=== PATIENT | male | born 1975 | race Caucasian/White ===

== ENCOUNTER → 2017-10-31 | Outpatient (CLI) | payer OTHER ==
--- NOTE | 2017-11-01 05:21 | PAP/PSG TECHNICIAN REPORT ---
[facility] Lead Housekeeper Polysomnogram Report Study name: None Report date: 11/01/2017 Study date: 10/31/2017 Referring Physician: Dr. Sinha Name: LENKA ARMSTRONG Interpreting Physician: Javier Reyna M.D. Date of : 1975 Lead Housekeeper: MARKUS Clayton. Sex: Male Age: 42 StudyType: PSG Weight: 132 lbs 14.5 INCHES Height: 42 years, Height 5' 3" Neck Circum: BMI: 23.38 Medications: ADVAIR DISKUS, ABILIFY 5 MG, WELLBUTRIN XL 150 MG, FLONASE, LOSARTAN POTASSIUM 100 MG, REGLAN 5 MG, TOPROL XL 25 MG, PRILOSEC 40 MG, PROAIR HFA 108 90 BASE, RANITIDINE HCL 300 MG Patient History PATIENT HAS HISTORY COPD, EXCESSIVE DAYTME SLEEPINESS AND SCHIZOPHRENIA. PATIENT USUALLY SLEEPS AROUND 12 HRS A DAY. HE IS HERE TODAY FOR AN EVALUATION FOR SUHAIL. ESS = 15 RM 7 Parameters Monitored NPSG: E1-M2, E2-M1, Fp1-M2, Fp2-M1, F3-M2, F4-M2, F4-M1, C3-M2, C4-M2, C4-M1, O1-M2, O2-M2, O2-M1, T3-M2, T4-M1, P3-M2, P4-M1, CHIN1, CHIN2, HR, EKG, Legs, PFLOW, SNOR, FLOW, CFLOW, Tidal Volume, THOR, ABDO, SpO2, PLTH, CPRESS, ETCO2 Wave, ETCO2, pH Sleep Architecture Sleep Stages Time at Lights Off 9:49:52 PM STAGES Time (min.) TST (%) Time at Lights On 4:17:52 AM Wake 153.5 -- Total Recording Time (TRT) 388.50 min. N1 22.0 9 Total Sleep Period (TSP) 257.5 min. N2 190.0 81 Total Sleep Time (TST) 234.5min. N3 16.5 7 Awake Time 154.0 min. REM 6.0 3 Wake after Sleep Onset 97.5 min. Sleep Efficiency (SE) 60 % Sleep Onset Latency ([place]) 56.0 min. Number of Stage 1 Shifts None Awakenings 17 Stage Changes 73 Number of REM periods 1 REM 6.0 3 REM Latency 147.5 min. NREM 228.5 97 Body Position Analysis Supine Right Left Side Prone Vertical Total Sleep Time (min.) 288.8 21.9 43.2 65.11 0.0 0.0 Total Sleep Time (%) 72% 9% 18% 28 0% N/A% Total Sleep Time REM (min.) 6.0 0.0 0.0 None 0.0 0.0 Total Sleep Time NREM (min.) 163.4 21.9 43.2 None 0.0 0.0 Intermittent Wake (min.) 119.5 2.7 31.4 None 0.0 0.0 Total Sleep Period (%) 72% None None None None None Arousals Myoclonus (PLM) * Events Count Index Events Count Index Spontaneous 30 8 Events Awake (PLMW) 150 58.6 Respiratory 26 6.7 Events Asleep w/ Arousal (PLMA) 4 1.0 PLM 4 1 Events Asleep w/o Arousal (PLMS) 88 22.5 Snoring 8 2 Total Asleep 92 23.5 Total 68 17 Total 242 37 Respiratory Analysis * CA OA MA CH H RERA Total Count 0 3 1 0 8 33 12 Index 0.0 0.8 0.3 0 2.0 8 11.5 Mean Duration 0.0 17.5 18.2 0.00 23.1 16.7 17.9 Longest Duration 0.0 22.7 18.2 0.00 18.2 22.0 38.0 Respiratory Event Summary Total Supine ~Supine Right Left Prone REM NREM Apneas Count 4 4 0 0 0 N/A 0 4 Index 1.0 1 0 0.0 0.0 N/A 0 1 Hypopneas (4% Desat) Count 8 8 0 0 0 N/A 0 8 Index 2.0 2.8 0 0.0 0.0 N/A 0.0 2.1 Apneas & All Hypopneas Count 12 12 0 0 0 N/A 0 12 Index 3.1 4 0 0 0 N/A 0.0 3.2 Respiratory Events (Hr Receptionist+All Hyp+RERA) Count 12 45 0 0 0 N/A 0 12 Index 11.5 16 0 0.0 0.0 N/A 0.0 11.8 Respiratory Related Arousal Count 26 45 0 0 0 N/A 0 26 Index 6.7 9 0 0 0 N/A 0 7 Snoring Analysis Supine Right Left Prone REM NREM Total Snore duration 9.7 min Snores count 296 59 96 N/A 0 451 451 Snore mean duration 1.3 Sec Snores index 105 162 133 N/A 0.0 118.4 115.4 TST with snoring (%) 4.1% SpO2 Analysis Total REM NREM Awake <50% 0.0 min. 0.0 min. 0.0 min. 0.0 min. 51 - 60% 0.0 min. 0.0 min. 0.0 min. 0.0 min. 61 - 70% 0.0 min. 0.0 min. 0.0 min. 0.0 min. 71 - 80% 0.4 min. 0.0 min. 0.0 min. 0.4 min. 81 - 90% 70.4 min. 0.8 min. 34.1 min. 35.6 min. 91 - 100% 310.6 min. 5.2 min. 194.4 min. 110.9 min. Average 92 91 92 92 Minimum SpO2 74 90 88 74 Desaturation Event Index 2.6 0.0 2.9 2.7 # Desat. Events below 89% 4 N/A 1 3 Time(%) with Saturation below 89% 2.4 0.0 0.1 2.3 Time(min.) with Saturation below 89% 9.2 0.0 0.3 8.8 Heart Rate Analysis End Tidal CO2 Analysis Min (bpm) Max (bpm) Average (bpm) TSP (mins) % of TSP Awake 41 157 71 Above 55 mmHg 0.0 0.0 NREM 47 82 61 50-55 mmHg 0.0 0.0 REM 66 85 79 45-50 mmHg 0.0 0.0 Overall 47 85 62 40-45 mmHg 0.2 0.1 35-40 mmHg 105.5 45.0 30-35 mmHg 118.1 50.4 Average ETCO2 0.1 Supplemental O2 Values Minimum O2 level: None Value Start Time End Time Lead Housekeeper Comments Mr. Armstrong slept in the right, left and supine positions. PVC's noted. Leg movements noted. No bruxism noted. Snoring was noted and scored as a 3 on a scale of 1 through 5. (0=no snoring, 5=snoring loud enough to be heard through a closed door or down the benites way) Mr. Armstrong awoke to use the restroom 0 times during the night. Mr. Armstrong stated I did not sleep as well as I do when I am in my own bed. The final report will be interpreted and signed by a sleep physician. The completed physician report will then be placed in the patient medical record. Therapy (cm H2O) 0 TIB (min.) 388.0 TST (min.) 234.5 Sleep Onset (min.) 56.0 REM Onset From Sleep (min.) 147.5 Sleep Efficiency % 60 Wakefulness (%) 40 Wakefulness (min.) 154.0 NREM 1 (%) 9 NREM 1 (min.) 22.0 NREM 2 (%) 81 NREM 2 (min.) 190.0 NREM 3 (%) 7 NREM 3 (min.) 16.5 REM (%) 3 REM (min.) 6.0 # Arousals 68 Arousal Index 17 # Snore 451 Snore Index 115.4 AHI 3.1 AHI Supine 4 AHI Non-Supine 0 NREM AHI 3.2 REM AHI 0.0 RDI 11.5 # Obstructive Apnea 3 # Central Apnea 0 # Mixed Apnea 1 # Hypopneas 8 RERAs 33 Total Respiratory Events 46 Time Below SpO2 89% (min.) 0.3 Mean NREM SpO2 (%) 92 Mean REM SpO2 (%) 91 Mean Sleep SpO2 (%) 92 Min NREM SpO2 (%) 88 Min REM SpO2 (%) 90 Position Supine (min.) 288.8 Position Non-supine (min.) 65.1 LM Index Sleep 23.5 LM Index NREM 21.8 LM Index REM 90.0 Mean Heart Rate (bpm) 62 Min Heart Rate (bpm) 47
--- NOTE | 2017-11-02 16:43 | POLYSOMNOGRAPH REPORT ---
CLINICAL DATA: A 42-year-old male with BMI of 23.[address] Sinha. He has a history of COPD, schizophrenia, and daytime sleepiness. He sleeps 12 hours a day. He is here to be evaluated for sleep apnea. His [place] sleepiness score was 15/24. SLEEP ARCHITECTURE: Total recording time was 388.5 minutes. Total sleep time was 234.5 minutes divided between 228.5 minutes of non-REM sleep and 6 minutes of REM sleep. Sleep latency was delayed at 56 minutes. REM latency was 147.5 minutes. Sleep efficiency was 60%. Wake after sleep onset was 97.5 minutes. Sleep consisted of stage N1 9%, stage N2 81%, stage N3 7%, and REM 3%. AROUSAL DATA: 68 arousals were recorded for an index of 17 per hour -26 were due to respiratory events. PLM DATA: Mildly elevated limb movements during sleep were noted. There were 92 limb movements of sleep noted for an index of 22.5 per hour with arousal index of 1 per hour. RESPIRATORY DATA: Upper airway resistance syndrome/borderline sleep apnea was documented. The AHI was 3.1. The CAITLYN was 11.5. There were 3 obstructive and 1 mixed apneic episodes. The longest duration of apnea was 22.7 seconds. There were 8 hypopneic episodes with the mean duration of 23.1 seconds. There were 33 RERAs the longest duration of which was 22 seconds. OXIMETRY DATA: No significant hypoxemia was seen. Oxygen delta was 88%. Mean saturation was 92%. EKG: Heart ranged from 47-85 beats per minute. PVCs were noted. PUTTY AND CAULKING SUPERVISOR'S COMMENTS: The patient slept in the right, left, and supine position. Snoring was moderate, rated 3 on a scale of 1-5. IMPRESSION: Borderline/mild sleep apnea/upper airway resistance syndrome with an AHI of 3.1 and an RDI of 11.5 without nocturnal hypoxemia. RECOMMENDATIONS: The patient may benefit from addressing any ENT issues, use of an oral appliance, or possibly CPAP. Clinical correlation is needed. SAHRA
== END | disposition home or self-care (01) ==
LOC: C.NEUR 21:00
PROVIDERS: ATTEND Internal Medicine
DX: G47.33 Obstructive sleep apnea (adult) (pediatric) (principal)